=== PATIENT | male | born 1980 | race Hispanic/Latino ===

== ENCOUNTER 2021-01-16 17:40 | Emergency (ER) | payer BC ==
--- OUTSIDE RECORDS SUMMARY | 2021-01-16 17:43 | XMS REPORT | Continuity of Care Document ---
:1980 Author Organization [facility] t Address [address] [place] [address] [address]. [address] [place] [address] Care Team Providers Name Role Phone Lab, Volodymyr Macias I Attending Clinician Unavailable Problems This patient has no known problems. Allergies, Adverse Reactions, Alerts This patient has no known allergies or adverse reactions. Medications This patient has no known medications. Procedures This patient has no known procedures. Encounters Start End Encounter Admission Attending Care Care Encounter Source Date/Time Date/Time Type Type Clinicians Facility Department ID 2020-01-18 2020-01-18 Laboratory Lab, Adc [facility] [id number] 13:12:29 13:22:18 Only Fam Pob I [facility] [id number] [place] [id number] [phone] [address] Results This patient has no known results.
--- NOTE | 2021-01-16 19:03 | RAD REPORT ---
EXAM DESCRIPTION: RAD - Chest Pa And Lat (2 Views) - 01/16/2021 6:57 pm CLINICAL HISTORY: PAIN Chest pain. COMPARISON: No comparisons FINDINGS: The lungs are clear. The heart is normal in size. No displaced fractures. IMPRESSION: No acute or concerning finding suspected.
[2021-01-16] MEDS ORDERED: ACETAMINOPHEN 325 MG TABLET ONE ×2 (19:11→20:00)
--- NOTE | 2021-01-16 21:35 | ER ---
Nurse's Notes [facility] Name: Jeremy Atkins Age: 40 yrs Sex: Male : 1980 Arrival Date: 01/16/2021 Time: 17:56 Bed 25 Private MD: Diagnosis: Acute pharyngitis, unspecified Presentation: 01/16 18:38 Chief complaint: Patient states: Pain, cough, fever, diarrhea, vomiting, head ache, kg sore throat x 3 days. Coronavirus screen: Client denies travel out of the [place] in the last 14 days. At this time, unable to obtain information related to travel outside the [place] At this time, the client does not indicate any symptoms associated with coronavirus-19. Ebola Screen: Patient negative for fever greater than or equal to 101.5 degrees Fahrenheit, and additional compatible Ebola Virus Disease symptoms Patient denies exposure to infectious person. Patient denies travel to an Ebola-affected area in the 21 days before illness onset. Initial Sepsis Screen: Does the patient meet any 2 criteria? No. Patient's initial sepsis screen is negative. Does the patient have a suspected source of infection? No. Patient's initial sepsis screen is negative. Risk Assessment: Do you want to hurt yourself or someone else? Patient reports no desire to harm self or others. Onset of symptoms was January 13, 2021. 18:38 Method Of Arrival: Ambulatory kg 18:38 Acuity: FREDERICK 4 kg Triage Assessment: 18:41 General: Appears uncomfortable, Behavior is calm, cooperative, appropriate for age, kg quiet. Pain: Complains of pain in face Pain radiates to Generalized. Historical: - Allergies: 18:41 No Known Allergies; kg - Home Meds: 18:41 None [Active]; kg - PMHx: 18:41 None; kg - PSHx: 18:41 None; kg - Immunization history:: Adult Immunizations up to date, Client reports having NOT received the Covid vaccine. - Social history:: Smoking status: Patient reports the use of cigarette tobacco products, smokes one pack cigarettes per day. Patient uses alcohol, occasionally. Screenin:43 Abuse screen: Denies threats or abuse. Denies injuries from another. Nutritional kg screening: No deficits noted. Tuberculosis screening: No symptoms or risk factors identified. Fall Risk None identified. Assessment: 19:44 General: Appears in no apparent distress. comfortable, Behavior is calm, cooperative, ld1 appropriate for age. Pain: Complains of pain in face and chest Pain does not radiate. Pain currently is 8 out of 10 on a pain scale. Neuro: No deficits noted. 19:45 Cardiovascular: Capillary refill < 3 seconds Patient's skin is warm and dry. ld1 Respiratory: Airway is patent Respiratory effort is even, unlabored, Respiratory pattern is regular, symmetrical. GI: Abdomen is round non-distended. : No signs and/or symptoms were reported regarding the genitourinary system. EENT: No signs and/or symptoms were reported regarding the EENT system. Derm: No signs and/or symptoms reported regarding the dermatologic system. Musculoskeletal: No signs and/or symptoms reported regarding the musculoskeletal system. 21:00 Reassessment: Patient appears in no apparent distress at this time. No changes from ld1 previously documented assessment. Patient and/or family updated on plan of care and expected duration. Pain level reassessed. Patient is alert, oriented x 3, equal unlabored respirations, skin warm/dry/pink. 21:50 Reassessment: Patient appears in no apparent distress at this time. No changes from ld1 previously documented assessment. Patient and/or family updated on plan of care and expected duration. Pain level reassessed. Vital Signs: 18:38 BP 139 / 103; Pulse 103; Resp 20; Temp 99.4(O); Pulse Ox 100% on R/A; Weight 96.62 kg kg (M); Height 5 ft. 9 in. (175.26 cm) (M); Pain 7/10; 19:45 BP 120 / 90; Pulse 100; Resp 18; Pulse Ox 98% ; ld1 21:00 BP 102 / 76; Pulse 75; Resp 18; Pulse Ox 97% on R/A; ld1 21:50 BP 116 / 70; Pulse 72; Resp 18; Pulse Ox 100% ; ld1 18:38 Body Mass Index 31.45 (96.62 kg, 175.26 cm) kg ED Course: 17:56 Patient arrived in ED. as 18:41 Triage completed. kg 18:41 Arm band placed on left wrist. kg 18:43 Patient has correct armband on for positive identification. kg 18:56 XRAY Chest Pa And Lat (2 Views) In Process Unspecified. EDMS 19:28 Martha Rivas MD is Attending Physician. ma2 19:37 Tracy Hu, RN is Primary Nurse. ld1 19:45 No provider procedures requiring assistance completed. ld1 21:51 Patient did not have IV access during this emergency room visit. ld1 Administered Medications: 19:43 Drug: Tylenol 650 mg Route: PO; ld1 19:44 Follow up: Response: No adverse reaction ld1 20:00 Drug: Ketorolac 60 mg Route: IM; Site: left deltoid; ld1 20:00 Follow up: Response: No adverse reaction ld1 Outcome: 21:34 Discharge ordered by . ma2 21:51 Discharged to home ambulatory. ld1 21:51 Condition: stable 21:51 Discharge instructions given to patient, family, Instructed on discharge instructions, follow up and referral plans. medication usage, Demonstrated understanding of instructions, follow-up care, medications. 21:51 Patient left the ED. ld1 Signatures: Dispatcher [employer] EDID Kacie Bryant as Mratha Rivas MD MD la2 Tracy Hu, RN RN ld1 Sharlene Mark RN RN kg Corrections: (The following items were deleted from the chart) 18:44 18:38 Chief complaint: Patient states: Pain, cough, fever, diarrhea, vomiting, head kg ache x 3 days. kg
--- NOTE | 2021-01-16 21:35 | EDPHYS ---
Physician Documentation [facility] Name: Jeremy Atkins Age: 40 yrs Sex: Male : 1980 Arrival Date: 01/16/2021 Time: 17:56 Bed 25 Private MD: ED Physician Martha Rivas HPI: 01/16 20:12 This 40 yrs old Male presents to ER via Ambulatory with complaints of Pain All ma2 Over. 20:12 This 40 yrs old Male presents to ER via Ambulatory with complaints of Pain All ma2 Over. 20:12 Onset: The symptoms/episode began/occurred gradually, 2 day(s) ago. Associated signs ma2 and symptoms: Pertinent positives: nausea and vomiting, diarrhea, fever, Runny nose, dry cough congestion, Pertinent negatives: chest pain, dysuria, headache, testicular pain. Severity of pain: At its worst the pain was mild in the emergency department the pain is unchanged. The patient has not experienced similar symptoms in the past. A lot of people at home has URI symptoms including and daughter, over the last 2 days, symptoms started 2 days ago. He has no risk factor or other chronic health issues, he has sore throat dry cough and generalized muscle aches. Historical: - Allergies: 18:41 No Known Allergies; kg - Home Meds: 18:41 None [Active]; kg - PMHx: 18:41 None; kg - PSHx: 18:41 None; kg - Immunization history:: Adult Immunizations up to date, Client reports having NOT received the Covid vaccine. - Social history:: Smoking status: Patient reports the use of cigarette tobacco products, smokes one pack cigarettes per day. Patient uses alcohol, occasionally. ROS: 20:12 Constitutional: Negative for fever, chills, and weight loss. ma2 20:12 All other systems are negative. Exam: 20:12 Constitutional: This is a well developed, well nourished patient who is awake, alert, ma2 and in no acute distress. Head/Face: Normocephalic, atraumatic. Eyes: Pupils equal round and reactive to light, extra-ocular motions intact. Lids and lashes normal. Conjunctiva and sclera are non-icteric and not injected. Cornea within normal limits. Periorbital areas with no swelling, redness, or edema. ENT: Red oropharynx, nares patent. No nasal discharge, no septal abnormalities noted. Tympanic membranes are normal and external auditory canals are clear. Oropharynx with no swelling, or masses, exudates, or evidence of obstruction, uvula midline. Mucous membranes moist. Neck: Trachea midline, no thyromegaly or masses palpated, and no cervical lymphadenopathy. Supple, full range of motion without nuchal rigidity, or vertebral point tenderness. No Meningismus. Chest/axilla: Normal chest wall appearance and motion. Nontender with no deformity. No lesions are appreciated. Cardiovascular: Regular rate and rhythm with a normal S1 and S2. No gallops, murmurs, or rubs. Normal PMI, no JVD. No pulse deficits. Respiratory: Lungs have equal breath sounds bilaterally, clear to auscultation and percussion. No rales, rhonchi or wheezes noted. No increased work of breathing, no retractions or nasal flaring. Abdomen/GI: Soft, non-tender, with normal bowel sounds. No distension or tympany. No guarding or rebound. No evidence of tenderness throughout. Skin: Warm, dry with normal turgor. Normal color with no rashes, no lesions, and no evidence of cellulitis. MS/ Extremity: Pulses equal, no cyanosis. Neurovascular intact. Full, normal range of motion. Neuro: Awake and alert, GCS 15, oriented to person, place, time, and situation. Cranial nerves II-XII grossly intact. Motor strength 5/5 in all extremities. Sensory grossly intact. Cerebellar exam normal. Normal gait. Vital Signs: 18:38 BP 139 / 103; Pulse 103; Resp 20; Temp 99.4(O); Pulse Ox 100% on R/A; Weight 96.62 kg kg (M); Height 5 ft. 9 in. (175.26 cm) (M); Pain 7/10; 19:45 BP 120 / 90; Pulse 100; Resp 18; Pulse Ox 98% ; ld1 21:00 BP 102 / 76; Pulse 75; Resp 18; Pulse Ox 97% on R/A; ld1 21:50 BP 116 / 70; Pulse 72; Resp 18; Pulse Ox 100% ; ld1 18:38 Body Mass Index 31.45 (96.62 kg, 175.26 cm) kg MDM: 19:28 Patient medically screened. ma2 20:12 Differential diagnosis: gastritis, Irritable bowel syndrome, URI, bronchitis, versus ma2 Covid. Data reviewed: vital signs, nurses notes. Counseling: I had a detailed discussion with the patient and/or guardian regarding: the historical points, exam findings, and any diagnostic results supporting the discharge/admit diagnosis, the presence of at least one elevated blood pressure reading (>120/80) during this emergency department visit, the need for outpatient follow up. Response to treatment: the patient's symptoms have markedly improved after treatment. 01/16 18:45 Order name: Strep; Complete Time: 19:29 kg 01/16 18:45 Order name: XRAY Chest Pa And Lat (2 Views); Complete Time: 19:29 kg 01/16 19:23 Order name: Throat Culture EDMS Administered Medications: 19:43 Drug: Tylenol 650 mg Route: PO; ld1 19:44 Follow up: Response: No adverse reaction ld1 20:00 Drug: Ketorolac 60 mg Route: IM; Site: left deltoid; ld1 20:00 Follow up: Response: No adverse reaction ld1 Disposition Summary: 01/16/21 21:34 Discharge Ordered Location: Home ma2 Condition: Stable ma2 Diagnosis - Acute pharyngitis, unspecified ma2 Followup: ma2 - With: Private Physician - When: Tomorrow - Reason: Continuance of care Discharge Instructions: - Discharge Summary Sheet ma2 - Pharyngitis ma2 Forms: - Medication Reconciliation Form ma2 - Thank You Letter ma2 - Antibiotic Education ma2 - Prescription Opioid Use ma2 - Work release form ld1 Prescriptions: - Diclofenac Sodium 75 mg Oral Tablet Sustained Release - take 1 tablet by ORAL route 2 times per day; 30 tablet; Refills: 0, Product ma2 Selection Permitted - Zithromax Z-Richi 250 mg Oral Tablet - take 1 tablet by ORAL route as directed for 5 days Day 1 - take two (2) tablets ma2 one time. Day 2, 3, 4 , 5 take one (1) tablet once daily.; 6 tablet; Refills: 0, Product Selection Permitted - Medrol (Richi) 4 mg Oral Tablets, Dose Pack - take 1 tablet by ORAL route as directed - follow package instructions; 1 ma2 packet; Refills: 0, Product Selection Permitted Signatures: Dispatcher [employer] EDMS Martha Rivas MD MD ma2 Tracy Hu RN RN ld1 Sharlene Mark RN RN kg Corrections: (The following items were deleted from the chart) 21:32 18:46 CORONAVIRUS+BRZ ordered. EDMS EDMS
[2021-01-18 03:35] VITALS: TEMP 99.4
[2021-01-18 03:41] VITALS: BP 116/70; O2SAT 100
== END 2021-01-16 21:51 | disposition home or self-care (01) ==
LOC: ER 17:40
DX: U07.1 COVID-19 (principal); J02.9 Acute pharyngitis, unspecified; F17.210 Nicotine dependence, cigarettes, uncomplicated
CPT/HCPCS: 87070; 87081; 71046; U0003

== ENCOUNTER 2024-05-27 23:19 | Emergency (ER) | payer BC, SELFPAY ==
--- OUTSIDE RECORDS SUMMARY | 2024-05-27 23:22 | XMS REPORT | Continuity of Care Document ---
Author Name Unknown Address [address] [place] [address] [facility] Address [address] [place] [address] Care Team Providers Care Lifestyle Coordinator Name Role Phone PCP, PATIENT DOES NOT HAVE A Primary Care Physic hope Unavailable Barrie MCDUFFIE, Marjorie Holland Attending Clinician UnavailBRITTANY Black Attending Clinician Unavailanabelle nunez Only, Ang Db Test Attending Clinician UnavailBrittany Olsen Attending Clinician [phone] Doctor Unassigned, [place] Attending Clinician U verónica Dozier MD, Fara Irizarry Attending Clinician [phone] BAO HANSEN Attending Clinician Unavailable Malena Jarquin Attending Clinician [phone] [facility], [facility] Attending Clinician Unav ailmicah Pcp, Patient Does Not Have A Attending Clinician Lab, Pcp Covid Attending Clinician Unavailable Lab, Adc Fam Pob I Attending Clinician UnavailMALENA Hassan Attending Clinician Unavailable Payers Payer Name Policy Type Policy Number Effective Date Expirati on Date Source Problems Condition Name Condition Details Condition Category Status Onset Date Resolution Date Last Treatment Date Treating Clinician Comments Source Obesity (BMI 30-39.9) Obesity (BMI 30-39.9) Disease Active 1- 00:00: 00 [facility] Allergies, Adverse Reactions, Alerts Allergy Name Allergy Type Status Severity Reaction(s) Onset Date Inactive Date Treating Clinician Comments Source NO KNOWN ALLERGIE S Drug Class Active [facility] Social History Social Habit Start Date Stop Date Quantity Comments Source Exposure to SARS-CoV-2 (event) 2022-03-15 00:00:00 2022-03-25 09:01:00 Yes [facility] Sex Assigned At 1980 00:00:00 1980 00:00:00 [facility] Smoking Status Start Date Stop Date Source Tobacco smoking consumption unknown [facility] Medications Ordered Medication Name Filled Medication Name Start Date Stop Date Current Medication? Ordering Clinician Indication Dosage Frequency Signature (SIG) Comments Components Source ibuprofen 600 mg tablet 08-06 00:00: 00 Yes 600mg Take 1 tablet by mouth every 6 (six) hours as needed for Pain (scale 4-6). [facility] cyclobenzap rine 10 mg tablet 08-06 00:00: 00 Yes 10mg Take 1 tablet by mouth 3 (three) times daily. [facility] metFORMIN 1,000 mg tablet 2016-06 03:00: 39 Yes 1000mg Take 1,000 mg by mouth 2 (two) times daily with meals. [facility] ibuprofen 800 mg tablet 2016-06 00:00: 00 Yes 800mg Take 1 tablet by mouth every 8 (eight) hours. [facility] metFORMIN 1,000 mg tablet 2016-06 22:00: 39 Yes 1000mg Take 1,000 mg by mouth 2 (two) times daily with meals. [facility] dicyclomine (BENTYL) 20 mg tablet 09-05 00:00: 00 Yes 20mg Take 1 tablet by mouth 4 (four) times daily. [facility] ondansetron (ZOFRAN, HYDROCHLORI DE,) 4 mg tablet 09-05 00:00: 00 Yes 4mg Take 1 tablet by mouth every 8 (eight) hours as needed for Nausea and Vomiting (N/V). [facility] fluticasone (FLONASE ALLERGY RELIEF) 50 mcg/actuati on nasal spray 07-15 00:00: 00 Yes 2{spray } Use 2 Sprays in each nostril daily. [facility] gabapentin 100 mg capsule 06-28 00:00: 00 Yes 100mg Take 1 capsule by mouth 3 (three) times daily as needed for Pain (scale 1-3). [facility] Vital Signs Vital Name Observation Time Observation Value Neil talbert Systolic blood pressure 2021-02-05 09:00:00 139 mm[Hg] [facility] Diastolic blood pressure 2021-02-05 09:00:00 90 mm[Hg] [facility] Heart rate 2021-02-05 09:00:00 77 /min [facility] Respiratory rate 2021-02-05 09:00:00 19 /min [facility] Oxygen saturation in Arterial blood by Pulse oximetry 2021-02-05 09:00:00 97 /min [facility] Body temperature 2021-02-05 07:06:00 37.11 Meme [facility] Body weight 2021-02-05 07:06:00 97.523 kg [facility] BMI 2021-02-05 07:06:00 31.75 kg/m2 [facility] Procedures Procedure Date / Time Performed Performing Clinicia n Source ASSIGNMENT OF BENEFITS 2022-03-25 14:15:16 Docto r Unassigned, [place] [facility] EKG-12 LEAD 2021-02-05 09:35:38 Loretta Garza [facility] TROPONIN I 2021-02-05 09:05:00 Fara Dozier [facility] XR CHEST 1 VW 2021-02-05 07:38:39 Loretta Garza [facility] COVID-19 (ID NOW RAPID TESTING) 2021-02-05 07:27:00 Fara Dozier [facility] URINALYSIS 2021-02-05 07:24:00 Loretta Garza [facility] TROPONIN I 2021-02-05 07:23:00 Loretta Garza [facility] COMP. METABOLIC PANEL (92384) 2021-02-05 07:23:00 Loretta Garza [facility] CBC WITH DIFF 2021-02-05 07:23:00 Loretta Garza [facility] N-TERMINAL PRO-BNP 2021-02-05 07:23:00 Kristina Garza [facility] NOTICE OF PRIVACY PRACTICES 2021-02-05 06:59:15 Doctor Unassigned, [place] [facility] CONSENT/REFUSAL FOR DIAGNOSIS AND TREATMENT 2021-02-05 06:58:41 Doctor Unassigned, [place] [facility] COVID-19 (PCR MOLECULAR TESTING) 2020-01-18 18:17:00 Malena Armendariz [facility] Encounters Start Date/Time End Date/Time Encounter Type Admission Type Attending [facility] Emergency Department Facility Care Department Encounter ID Source 2021-04-23 15:40:34 Emergency [facility] [id number] [facility] 2022-03-26 00:00:00 2022-03-26 00:00:00 Letter (Out) Marjorie Sood [facility] 1.840.114 350.1.13.10 4.2.7.2.686 [id number] [facility] 2022-03-25 09:15:00 2022-03-25 09:37:02 Outpatient R KAUSHIK [facility] [id number] [facility] 2022-03-25 09:15:00 2022-03-25 09:30:00 Laboratory Only Only, Ang Db Test Kaushik, [facility]?DEE DEEJericho [facility] 1..840.114 350.1.13.10 4.2.7.2.686 [id number] [facility] 2022-03-25 00:00:00 2022-03-25 00:00:00 Orders Only Doctor Unassigned, [place] [id number] 350.1.13.10 4.2.7.2.686 [id number] [facility] 2022-03-25 00:00:00 2022-03-25 00:00:00 Letter (Out) Doctor Unassigned, [place] [id number] 350.1.13.10 4.2.7.2.686 [id number] [facility] 2022-03-25 00:00:00 2022-03-25 00:00:00 Letter (Out) Doctor Unassigned, [place] [facility] 1.2840.114 350.1.13.10 4.2.7.2.686 [id number] [facility] 2021-02-05 02:12:00 2021-02-05 04:53:00 Emergency Fara Dozier [facility] 1.2840.114 350.1.13.10 4.2.7.2.686 [id number] [facility] 2021-02-05 00:00:00 2021-02-05 00:00:00 Orders Only Doctor Unassigned, [place] [facility] 1.20.114 350.1.13.10 4.2.7.2.686 [id number] [facility] 2021-01-17 11:00:00 2021-01-17 11:00:00 Outpatient BAO PAULSON [facility] [id number] [facility] 2020-01-19 00:00:00 2020-01-19 00:00:00 Telephone Malena Armendariz [facility] 1.0.114 350.1.13.10 4.2.7.2.686 [id number] [facility] 2020-01-19 00:00:00 2020-01-19 00:00:00 Telephone Sole, Acute Care Clinic [facility] 1.2840.114 350.1.13.10 4.2.7.2.686 [id number] [facility] 2020-01-19 00:00:00 2020-01-19 00:00:00 Letter (Out) Pcp, Patient Does Not Have A [facility] 1.2840.114 350.1.13.10 4.2.7.2.686 [id number] [facility] 2020-01-19 00:00:00 2020-01-19 00:00:00 Telephone Lab, Pcp Covid [facility] 1.2.840.114 350.1.13.10 4.2.7.2.686 [id number] [facility] 2020-01-18 13:12:29 2020-01-18 13:22:18 Laboratory Only Lab, [facility] 1.20.114 350.1.13.10 4.2.7.2.686 [id number] 2020-01-18 13:12:29 2020-01-18 13:22:18 [facility] 1.840.114 350.1.13.10 4.2.7.2.686 [id number] [facility] 2020-01-18 13:20:00 2020-01-18 13:20:00 Outpatient MALENA COY [facility] [id number] [facility] 2020-01-18 00:00:00 2020-01-18 00:00:00 Letter (Out) Doctor Unassigned, [place] [facility] 1.2840.114 350.1.13.10 4.2.7.2.686 [id number] [facility] Results Test Description Test Time Test Comments Results Result Co mments Source [facility] WITH [id number] 08:12:56* Test Item Value Reference Range Interpretation Comme nts WBC (test code = 6690-2) See_Comment [Automated messa ge] The system which generated this result transmitted reference range: 4.20 - 10.70 10*3/?L. The reference range was not used to interpret this result as normal/abnormal. RBC (test code = 789-8) See_Comment [Automated messa ge] The system which generated this result transmitted reference range: 4.26 - 5.52 10*6/?L. The reference range was not used to interpret this result as normal/abnormal. HGB (test code = 718-7) 15.5 g/dL 12.2-16.4 HCT (test code = 4544-3) 44.1 % 38.4-49.3 MCV (test code = 787-2) 86.3 fL 81.7-95.6 MCH (test code = 785-6) 30.3 pg 26.1-32.7 MCHC (test code = 786-4) 35.1 g/dL 31.2-35.0 H RDW-SD (test code = 79018-2) 39.4 fL 38.5-51.6 RDW-CV (test code = 788-0) 12.4 % 12.1-15.4 PLT (test code = 777-3) See_Comment [Automated messa ge] The system which generated this result transmitted reference range: 150 - 328 10*3/?L. The reference range was not used to interpret this result as normal/abnormal. MPV (test code = 93842-8) 9.6 fL 9.8-13.0 L NRBC/100 WBC (test code = 7645496800) See_Comment [Automated [employer] ssage] The system which generated this result transmitted reference range: 0.0 - 10.0 /100 WBCs. The reference range was not used to interpret this result as normal/abnormal. NRBC x10^3 (test code = 9284085241) <0.01 See_Comment [Automated messa ge] The system which generated this result transmitted reference range: 10*3/?L. The reference range was not used to interpret this result as normal/abnormal. GRAN MAT (NEUT) % (test code = 770-8) 41.6 % IMM GRAN % (test code = 4552638265) 0.20 % LYMPH % (test code = 736-9) 46.8 % MONO % (test code = 5905-5) 8.5 % EOS % (test code = 713-8) 2.3 % BASO % (test code = 706-2) 0.6 % GRAN MAT x10^3(ANC) (test code = 6087989361) 3.65 10*3/uL 1.99-6.95 IMM GRAN x10^3 (test code = 8351903102) <0.03 0.00-0.06 LYMPH x10^3 (test code = 731-0) 4.11 10*3/uL 1.09-3.23 H MONO x10^3 (test code = 742-7) 0.75 10*3/uL 0.36-1.02 EOS x10^3 (test code = 711-2) 0.20 10*3/uL 0.06-0.53 BASO x10^3 (test code = 704-7) 0.05 10*3/uL 0.01-0.09 Lab Interpretation (test code = 89664-9) [facility]33076[facility]2021-[facility]-05 08:11:56* Test Item Value Reference Range Interpretation Comme nts NA (test code = 9983889843) 139 mmol/L 135-145 K (test code = 1234176898) 3.6 mmol/L 3.5-5.0 CL (test code = 3921404727) 106 mmol/L 98-108 CO2 TOTAL (test code = 6484246079) 27 mmol/L 23-31 AGAP (test code = 2184553545) 2-16 BUN (test code = 4359311455) 15 mg/dL 7-23 GLUCOSE (test code = 6707369542) 155 mg/dL 70-110 H CREATININE (test code = 5179539814) 0.80 mg/dL 0.60-1.25 TOTAL BILI (test code = 0219434732) 0.6 mg/dL 0.1-1.1 CALCIUM (test code = 4354327235) 9.2 mg/dL 8.6-10.6 T PROTEIN (test code = 6475012937) 7.5 g/dL 6.3-8.2 ALBUMIN (test code = 2443367392) 4.5 g/dL 3.5-5.0 ALK PHOS (test code = 6489060275) 83 U/L 34-122 ALTv (test code = 1742-6) 35 U/L 5-50 AST(SGOT) (test code = 4985321854) 29 U/L 13-40 eGFR (test code = 5048765531) mL/min/1.73m2 KIMBERLY (test code = KIMBERLY) Association of Glomerular Filtration Rate (GFR) and Staging of Kidney Disease* + --+ --+ ------+| GFR (mL/min/1.73 m2) ?| With Kidney Damage ?| ?Without Kidney Damage+ --------+ --------+ +| ?>90 ?| ?Stage one ?| ? Normal ?+ ---+ ---+ -------+| ?60-89 ?| ?Stage two ?| ? Decreased GFR ? + --+ --+ ------+| ?30-59 ?| ?Stage three ?| ? Stage three ? + --+ --+ ------+| ?15-29 ?| ?Stage four ? | ? Stage four ?+ ---+ ---+ -------+| ?<15 (or dialysis) ? ?| ?Stage five ? | ? Stage five ?+ ---+ ---+ -------+ *Each stage assumes the associated GFR level has been in effect for at least three months. ?Stages 1 to 5, with or without kidney disease, indicate chronic kidney disease. Notes: Determination of stages one and two (with eGFR >59mL/min/1.73 m2) requires estimation of kidney damage for at least three months as defined by structural or functional abnormalities of the kidney, manifested by either:Pathological abnormalities or Markers of kidney damage (including abnormalities in the composition of the blood or urine or abnormalities in imaging tests). Lab Interpretation (test code = 05326-8) [facility]normal [id number] 08:11:51* Test Item Value Reference Range Interpretation Comme nts NT-proBNP (test code = 4878549226) 21 pg/mL See_Comment [Automated message] The system which generated this result transmitted reference range: <=125. The reference range was not used to interpret this result as normal/abnormal. KIMBERLY (test code = KIMBERLY) Biotin has been reported to cause a negative bias, interpret results relative to patient's use of biotin. Lab Interpretation (test code = 27938-4) Normal [facility] [id number] 08:11:41* Test Item Value Reference Range Interpretation Comments TROPONIN I (test code = 1357328881) 0.005 ng/mL See_Comment [Automated message] The system which generated this result transmitted reference range: <=0.034. The reference range was not used to interpret this result as normal/abnormal. KIMBERLY (test code = KIMBERLY) Reference (Normal) Range (defined by the 99th percentile reference limit): <= 0.034 ng/mL Note: Cardiac troponin begins to rise 3-4 hours after the onset of ischemia. Repeat in 4-6 hours if the sample was drawn within 3-4 hours of the onset of the symptom and found normal. Diagnosis of myocardial injury is made with acute changes in cTn concentrations with at least one serial sample above the 99th percentile upper reference limit (URL), taken together with the patient's clinical presentation. Biotin has been reported to cause a negative bias, interpret results relative to patient's use of biotin. Lab Interpretation (test code = 41046-4) Normal [facility]2021-[facility]16 07:54:01* Test Item Value Reference Range Interpretation Comme nts APPEARANCE (test code = 9934152024) Clear Clear COLOR (test code = 7222805852) Yellow Yellow PH (test code = 2947866977) 4.8-8.0 SP GRAVITY (test code = 3606085879) 1.003-1.030 GLU U QUAL (test code = 6722059420) Normal Normal BLOOD (test code = 2062509502) Negative Negative KETONES (test code = 1970914755) Negative Negative PROTEIN (test code = 2887-8) Negative Negative UROBILIN (test code = 3896128962) 4.0 mg/dL Normal A BILIRUBIN (test code = 9179968506) Negative Negative NITRITE (test code = 2461407787) Negative Negative LEUK VALDO (test code = 0385174292) Negative Negative RBC/HPF (test code = 6614624201) See_Comment [Automated messa ge] The system which generated this result transmitted reference range: 0 - 3 HPF. The reference range was not used to interpret this result as normal/abnormal. WBC/HPF (test code = 5865438777) <1 See_Comment [Automated messa ge] The system which generated this result transmitted reference range: 0 - 5 HPF. The reference range was not used to interpret this result as normal/abnormal. BACTERIA (test code = 1531748283) Negative Negative MUCOUS (test code = 2087626536) Slight Negative LPF A Lab Interpretation (test code = 63534-9) Abnormal [facility]-19 (ID NOW RAPID TESTING)2021-02-05 07:46:54* Test Item Value Reference Range Interpretation Comme nts SARS-CoV-2 Rapid ID NOW (test code = 31543-4) Positive Not Detected A KIMBERLY (test code = KIMBERLY) ID NOW COVID-19 As say is an isothermal nucleic acid amplification test intended for the qualitative detection of nucleic acid from SARS-CoV-2 viral RNA in nasopharyngeal (CUSTODIAL WORKER) specimens. It is used under Emergency Use Authorization (EUA) by FDA. The limit of detection (LOD) of the assay is 125 Genome Equivalents/mL. A positive result is indicative of the presence of SARS-CoV-2 RNA. ?Clinical correlation with patient history and other diagnostic information is necessary to determine patient infection status. A negative (Not Detected) result does not preclude SARS-CoV-2 infection. In patients with clinical symptoms and other tests that are consistent with SARS-CoV-2 infection, negative results should be treated as presumptive negative and a new specimen should be tested with alternative PCR molecular test. Invalid: Please collect a new specimen for repeat patient testing if clinically indicated. Lab Interpretation (test code = 73663-9) Abnormal [facility]-19 (PCR MOLECULAR TESTING)2020-01-19 17:53:00* Test Item Value Reference Range Interpretation Comme nts SARS-CoV-2 PCR (test code = 89733-7) Not Detected Not Detected KIMBERLY (test code = KIMBERLY) [employer] Aptima SARS-CoV-2 Assay is a nucleic acid amplification test intended for the qualitative detection of RNA from SARS-CoV-2 from nasopharyngeal (CUSTODIAL WORKER) specimens. ?It is used under Emergency Use Authorization (EUA) by FDA. A positive result is indicative of the presence of SARS-CoV-2 RNA. ?Clinical correlation with patient history and other diagnostic information is necessary to determine patient infection status. A negative (Not Detected) result does not preclude SARS-CoV-2 infection. ?Clinical correlation with patient history and other diagnostic information should be used in patient management decisions. Invalid: Unable to generate a valid test result on this specimen. ?Please submit a new specimen for repeat testing if clinically indicated. Lab Interpretation (test code = 44031-4) Normal [facility]"
[2024-05-28] MEDS ORDERED: methocarbamoL 750 MG TAB ONE (00:38)
[2024-05-28] MEDS ORDERED: KETOROLAC 30 MG/ML INJ ONE (00:38)
[2024-05-28] MEDS ORDERED: PROMETHAZINE 25 MG TABLET ONE (00:38)
[2024-05-28] MEDS ORDERED: HYDROCODONE/APAP 5/325 MG TAB ONE (00:39)
--- NOTE | 2024-05-28 02:47 | RAD REPORT ---
CLINICAL HISTORY: Pelvic and lower spinal pain. COMPARISON: None. TECHNIQUE: CT PELVIS WITHOUT IV CONTRAST on 05/28/2024 12:31 AM STORE MANAGEMENT TRAINEE This exam was performed according to our departmental dose-optimization program, which includes autom ated exposure control, adjustment of the mA and/or kV according to patient size and/or use of iterative reconstruction technique. FINDINGS: There is no bowel obstruction. Urinary bladder is unremarkable. There is no free fluid. Appendix is n ormal. Skeleton: There are no acute osseous findings. No suspicious bony lesions. IMPRESSION: No acute findings. Electronically signed by: Jsoe Melo MD 05/28/2024 02:41 AM STORE MANAGEMENT TRAINEE RP Due to temporary technical issues with the PACS[employer] reporting system, reports are being june d by the in-house radiologist without review as a courtesy to ensure prompt reporting the interpreting radiologist is fully responsible for the content of the report. Transcribed Date/Time: 05/28/2024 2:47 AM
--- NOTE | 2024-05-28 02:47 | RAD REPORT ---
CLINICAL HISTORY: Lower back pain. COMPARISON: None. TECHNIQUE: CT LUMBAR SPINE WITHOUT IV CONTRAST on 05/28/2024 12:30 AM COIL CLEANER This exam was performed according to our departmental dose-optimization program, which includes autom ated exposure control, adjustment of the mA and/or kV according to patient size and/or use of iterative reconstruction technique. FINDINGS: There is no acute fracture. Vertebral body heights are preserved. Alignment is anatomic. There is mild narrowing of the L5-S1 disc. Soft tissues are unremarkable. IMPRESSION: No acute fracture or subluxation. Electronically signed by: Jose Melo MD 05/28/2024 02:35 AM COIL CLEANER RP Due to temporary technical issues with the PACS/[employer] reporting system, reports are being june d by the in-house radiologist without review as a courtesy to ensure prompt reporting the interpreting radiologist is fully responsible for the content of the report. Transcribed Date/Time: 05/28/2024 2:47 AM
--- NOTE | 2024-05-28 02:55 | EDPHYS ---
Physician Documentation [facility] Name: Jeremy Atkins Age: 43 yrs Sex: Male : 1980 Arrival Date: 05/27/2024 Time: 23:19 Bed 13 Private MD: ED Physician Dillon Smith HPI: 05/27 23:25 This 43 yrs old Male presents to ER via Unassigned with complaints of Low Back sp4 Pain. 05/28 05:57 43-year-old male presents with acute lower back pain starting yesterday lowermost part sp4 of the back midline right next to the sacrum. Historical: - Allergies: 05/27 23:35 No Known Allergies; jb4 - PMHx: 23:35 None; jb4 - PSHx: 23:35 None; jb4 - Immunization history:: Adult Immunizations unknown. - Infectious Disease History:: Denies. - Social history:: Smoking status: Patient reports the use of cigarette tobacco products, smokes one pack cigarettes per day. - Family history:: not pertinent. ROS: 05/28 05:57 Constitutional: Negative for fever, chills, and weight loss, positive for acute sp4 lower back pain All other systems are negative, Exam: 05:57 Constitutional: This is a well developed, well nourished patient who is awake, alert, sp4 and in no acute distress. Head/Face: Normocephalic, atraumatic. Eyes: Pupils equal round and reactive to light, extra-ocular motions intact. Lids and lashes normal. Conjunctiva and sclera are not injected. Cornea within normal limits. Periorbital areas with no swelling, redness, or edema. ENT: Nares patent. No nasal discharge, no septal abnormalities noted. Tympanic membranes are normal and external auditory canals are clear. Oropharynx with no redness, swelling, or masses, exudates, or evidence of obstruction, uvula midline. Mucous membranes moist. Neck: Trachea midline, no thyromegaly or masses palpated, and no cervical lymphadenopathy. Supple, full range of motion without nuchal rigidity, or vertebral point tenderness. Chest/axilla: Normal chest wall appearance and motion. Nontender with no deformity. No lesions are appreciated. Cardiovascular: Regular rate and rhythm with a normal S1 and S2. No gallops, murmurs, or rubs. Normal PMI, no JVD. No pulse deficits. Respiratory: Lungs have equal breath sounds bilaterally, clear to auscultation and percussion. No rales, rhonchi or wheezes noted. No increased work of breathing, no retractions or nasal flaring. Abdomen/GI: Soft, with normal bowel sounds. No distension or tympany. No guarding or rebound. No evidence of tenderness throughout. Back: No spinal tenderness. No costovertebral tenderness. Skin: Warm, dry with normal turgor. Normal color with no rashes, no lesions, and no evidence of cellulitis. MS/ Extremity: Pulses equal, no cyanosis. Neurovascular intact. Full, normal range of motion. Neuro: Awake and alert, GCS 15, oriented to person, place, time, and situation. Cranial nerves II-XII grossly intact. Motor strength 5/5 in all extremities. Sensory grossly intact. Psych: Awake, alert, with orientation to person, place and time. Behavior, mood, and affect are within normal limits Vital Signs: 05/27 23:34 BP 130 / 96; Pulse 88; Resp 16; Temp 98.5(O); Pulse Ox 99% on R/A; Weight 100.7 kg (R); jb4 Height 5 ft. 9 in. (R); Pain 8/10; 05/28 03:18 BP 151 / 89; Pulse 88; Resp 18; Temp 98; Pulse Ox 100% on R/A; kj2 05/27 23:34 Body Mass Index 32.78 (100.70 kg, 175.26 cm) 4 05/27 23:34 Pain Scale: Adult jb4 Roseline Coma Score: 05:57 Eye Response: spontaneous(4). Motor Response: obeys commands(6). Verbal Response: sp4 oriented(5). Total: 15. MDM: 00:26 Medical Screening Exam initiated sp4 02:46 ED course: CLINICAL HISTORY: Lower back pain. COMPARISON: None. TECHNIQUE: CT LUMBAR sp4 SPINE WITHOUT IV CONTRAST on 05/28/2024 12:30 AM [employer] This exam was performed according to our departmental dose-optimization program, which includes automated exposure control, adjustment of the mA and/or kV according to patient size and/or use of iterative reconstruction technique. FINDINGS: There is no acute fracture. Vertebral body heights are preserved. Alignment is anatomic. There is mild narrowing of the L5-S1 disc. Soft tissues are unremarkable. IMPRESSION: No acute fracture or subluxation. . ED course: CLINICAL HISTORY: Pelvic and lower spinal pain. COMPARISON: None. TECHNIQUE: CT PELVIS WITHOUT IV CONTRAST on 05/28/2024 12:31 AM [employer] REPRESENTATIVE This exam was performed according to our departmental dose-optimization program, which includes automated exposure control, adjustment of the mA and/or kV according to patient size and/or use of iterative reconstruction technique. FINDINGS: There is no bowel obstruction. Urinary bladder is unremarkable. There is no free fluid. Appendix is normal. Skeleton: There are no acute osseous findings. No suspicious bony lesions. IMPRESSION: No acute findings. Electronically signed by: Jose Melo MD 05/28/2024 02:41. 05:57 Differential diagnosis: arthritis, strain, fracture, sciatica, contusion, Herniated sp4 disc. Data reviewed: vital signs, nurses notes, radiologic studies, CT scan. Consideration of Admission/Observation Escalation of care including admission/observation considered. ED course: Pain in the back - improved with medications. Patient is stable for discharge home. 05/28 00:30 Order name: CT Lumbar Spine Wo Con; Complete Time: 02:52 sp4 05/28 00:31 Order name: CT Pelvis wo Cont; Complete Time: 02:52 sp4 Administered Medications: 00:44 Drug: Promethazine PO 25 mg PO once Route: PO; jb4 03:21 Follow up: Response: No adverse reaction kj2 00:46 Drug: Ketorolac IM 30 mg IM once Route: IM; Site: right deltoid; jb4 03:21 Follow up: Response: No adverse reaction kj2 00:46 Drug: HYDROcodone-acetaminophen PO 5 mg-325 mg 2 tabs PO once Route: PO; jb4 03:21 Follow up: Response: No adverse reaction kj2 00:46 Drug: Methocarbamol PO 1500 mg PO once Route: PO; jb4 03:21 Follow up: Response: No adverse reaction kj2 03:21 Drug: traMADol PO 100 mg PO once Route: PO; kj2 03:21 Follow up: Response: No adverse reaction; Medication administered at discharge. kj2 Disposition Summary: 05/28/24 02:54 Discharge Ordered Notes: 3 days bed rest - NO work Location: Home sp4 Problem: new sp4 Symptoms: have improved sp4 Condition: Stable sp4 Diagnosis - Low back pain sp4 - L5-S1 degenerative disc disease, acute lower back pain, acute lower back sprain sp4 Followup: sp4 - With: Private Physician - When: As needed - Reason: Discharge Instructions: - Discharge Summary Sheet sp4 - Acute Back Pain, Adult sp4 Forms: - Patient Portal Instructions sp4 Prescriptions: - naproxen 500 mg Oral tablet - take 1 tablet ORAL route every 12 hours PRN pain; 50 tablet; Refills: 0, sp4 Product Selection Permitted - tramadol 100 mg Oral tablet - take 1 tablet ORAL route every 8 hours PRN pain; 25 tablet; Refills: 0, Product sp4 Selection Permitted - methocarbamol 750 mg Oral tablet - take 2 tablets ORAL route every 8 hours for 2 days PRN pain; 60 tablet; sp4 Refills: 0, Product Selection Permitted Signatures: Dispatcher [employer] Ramírez Duran, RN RN jb4 Dillon Smith MD MD sp4 Yisel Umana RN RN kj2 Corrections: (The following items were deleted from the chart) 00:31 00:31 Pelvis Wo [id number] ordered. EDMS EDMS
--- NOTE | 2024-05-28 02:55 | ER ---
Nurse's Notes [facility] Name: Jeremy Atkins Age: 43 yrs Sex: Male : 1980 Arrival Date: 05/27/2024 Time: 23:19 Bed 13 Private MD: Diagnosis: Low back pain;L5-S1 degenerative disc disease, acute lower back pain, acute lower back sprain Presentation: 05/27 23:34 Chief complaint: Patient states: I woke up this morning with my lower back hurting and jb4 it has not gotten any better. The pain radiates into both my thighs. Coronavirus screen: At this time, the client does not indicate any symptoms associated with coronavirus-19. Ebola Screen: No symptoms or risks identified at this time. Initial Sepsis Screen: Does the patient meet any 2 criteria? No. Patient's initial sepsis screen is negative. Does the patient have a suspected source of infection? No. Patient's initial sepsis screen is negative. Risk Assessment: Do you want to hurt yourself or someone else? Patient reports no desire to harm self or others. Onset of symptoms was May 27, 2024. Transition of care: patient was not received from another setting of care. 23:34 Method Of Arrival: Ambulatory jb4 23:34 Acuity: FREDERICK 4 jb4 Historical: - Allergies: 23:35 No Known Allergies; jb4 - PMHx: 23:35 None; jb4 - PSHx: 23:35 None; jb4 - Immunization history:: Adult Immunizations unknown. - Infectious Disease History:: Denies. - Social history:: Smoking status: Patient reports the use of cigarette tobacco products, smokes one pack cigarettes per day. - Family history:: not pertinent. Screenin:36 [facility] ED Fall Risk Assessment (Adult) History of falling in the last 3 months, jb4 including since admission No falls in past 3 months (0 pts) Confusion or Disorientation No (0 pts) Intoxicated or Sedated No (0 pts) Impaired Gait No (0 pts) Mobility Assist Device Used No (0 pt) Altered Elimination No (0 pt) Score/Fall Risk Level 0 - 2 = Low Risk Oriented to surroundings, Maintained a safe environment. Abuse screen: Denies threats or abuse. Nutritional screening: No deficits noted. Tuberculosis screening: No symptoms or risk factors identified. Assessment: 23:36 General: Appears in no apparent distress. uncomfortable, Behavior is calm, cooperative, jb4 appropriate for age. Pain: Complains of pain in low back area Pain radiates to right hamstring and left hamstring Pain currently is 8 out of 10 on a pain scale. Neuro: Level of Consciousness is awake, alert, obeys commands, Oriented to person, place, time, situation. Cardiovascular: Patient's skin is warm and dry. Respiratory: Airway is patent Respiratory effort is even, unlabored, Respiratory pattern is regular, symmetrical. Derm: Skin is intact, Skin is pink, warm \T\ dry. Musculoskeletal: Circulation, motion, and sensation intact. Range of motion: intact in all extremities. 05/28 00:30 Reassessment: Patient appears in no apparent distress at this time. Patient and/or jb4 family updated on plan of care and expected duration. Pain level reassessed. Patient is alert, oriented x 3, equal unlabored respirations, skin warm/dry/pink. 01:30 Reassessment: Patient appears in no apparent distress at this time. Patient and/or jb4 family updated on plan of care and expected duration. Pain level reassessed. Patient is alert, oriented x 3, equal unlabored respirations, skin warm/dry/pink. 02:37 Reassessment: Patient appears in no apparent distress at this time. Patient and/or jb4 family updated on plan of care and expected duration. Pain level reassessed. Patient is alert, oriented x 3, equal unlabored respirations, skin warm/dry/pink. Patient states feeling better. 03:15 Reassessment: Patient appears in no apparent distress at this time. Patient and/or kj2 family updated on plan of care and expected duration. Pain level reassessed. Patient is alert, oriented x 3, equal unlabored respirations, skin warm/dry/pink. Vital Signs: 05/27 23:34 BP 130 / 96; Pulse 88; Resp 16; Temp 98.5(O); Pulse Ox 99% on R/A; Weight 100.7 kg (R); jb4 Height 5 ft. 9 in. (R); Pain 8/10; 05/28 03:18 BP 151 / 89; Pulse 88; Resp 18; Temp 98; Pulse Ox 100% on R/A; kj2 05/27 23:34 Body Mass Index 32.78 (100.70 kg, 175.26 cm) jb4 05/27 23:34 Pain Scale: Adult jb4 Roseline Coma Score: 05:57 Eye Response: spontaneous(4). Motor Response: obeys commands(6). Verbal Response: sp4 oriented(5). Total: 15. ED Course: 05/27 23:23 Patient arrived in ED. gm2 23:25 Dillon Smith MD is Attending Physician. sp4 23:33 Ramírez Reis, RETA is Primary Nurse. jb4 23:35 Triage completed. jb4 23:35 Arm band placed on right wrist. jb4 23:36 Patient has correct armband on for positive identification. Bed in low position. Call jb4 light in reach. Side rails up X 1. Provided Education on: plan of care. 23:36 No provider procedures requiring assistance completed. jb4 05/28 01:13 CT Lumbar Spine Wo Con In Process Unspecified. EDMS 01:13 CT Pelvis wo Cont In Process Unspecified. EDMS 03:20 Patient did not have IV access during this emergency room visit. kj2 Administered Medications: 00:44 Drug: Promethazine PO 25 mg PO once Route: PO; jb4 03:21 Follow up: Response: No adverse reaction kj2 00:46 Drug: Ketorolac IM 30 mg IM once Route: IM; Site: right deltoid; jb4 03:21 Follow up: Response: No adverse reaction kj2 00:46 Drug: HYDROcodone-acetaminophen PO 5 mg-325 mg 2 tabs PO once Route: PO; jb4 03:21 Follow up: Response: No adverse reaction kj2 00:46 Drug: Methocarbamol PO 1500 mg PO once Route: PO; jb4 03:21 Follow up: Response: No adverse reaction kj2 03:21 Drug: traMADol PO 100 mg PO once Route: PO; kj2 03:21 Follow up: Response: No adverse reaction; Medication administered at discharge. kj2 Medication: 05/27 23:36 VIS not applicable for this client. jb4 Outcome: 05/28 02:54 Discharge ordered by . sp4 03:19 Discharged to home ambulatory, with family, kj2 03:19 Condition: stable 03:19 Discharge instructions given to patient, family, Instructed on discharge instructions, follow up and referral plans. medication usage, Demonstrated understanding of instructions, follow-up care, medications, Prescriptions given X 03:23 Patient left the ED. kj2 Signatures: Dispatcher [employer] EDRamírez Plummer, RN RN jb4 Dillon Smith MD MD sp4 Reina eRno gm2 Yisel Umana RN RN kj2
[2024-05-28] MEDS ORDERED: TRAMADOL HCL 50 MG TAB ONE (03:00)
[2024-05-28 09:40] VITALS: BP 151/89; TEMP 98; O2SAT 100
== END 2024-05-28 03:23 | disposition home or self-care (01) ==
LOC: ER 23:19
DX: S33.5XXA Sprain of ligaments of lumbar spine, initial encounter (principal); F17.210 Nicotine dependence, cigarettes, uncomplicated
CPT/HCPCS: 72131; 72192; 96372; 99284; Q0169